=== PATIENT | male | born 1970 | race Caucasian/White ===

== ENCOUNTER 2018-05-26 13:03 | Emergency (ER) | payer OTHER ==
[2018-05-26 13:11] VITALS: BP 167/96
[2018-05-26] MEDS ORDERED: CEPHALEXIN 500 MG CAPSULE PO ONE (13:28)
--- NOTE | 2018-05-26 13:35 | ER Document Report ---
HPI - HPI Pain Level: 3 Notes: Patient is a 47-year-old male who presents with chief complaint of possible insect bite to his right ankle. Patient states he believes it was a black . He states that he did not see the spider or insect. He states that the bite occurred yesterday and a few hours later he had a brief episode of heart racing and abdominal pain. He states that the symptoms resolved within a few minutes. Patient wanted to be checked out in case it was a black . Past Medical History - General Information source: Patient - Social History Smoking Status: Never Smoker Frequency of alcohol use: None Drug Abuse: None Family History: Reviewed & Not Pertinent - Medical History Medical History: Negative Surgical Hx: Negative - Immunizations Immunizations up to date: Yes Vertical Provider Document - CONSTITUTIONAL Notes: PHYSICAL EXAMINATION: GENERAL: Well-appearing, well-nourished and in no acute distress. HEAD: Atraumatic, normocephalic. EYES: Pupils equal round extraocular movements intact, conjunctiva are normal. ENT: Nares patent NECK: Normal range of motion LUNGS: No respiratory distress Musculoskeletal: Normal range of motion NEUROLOGICAL: Normal speech, normal gait. PSYCH: Normal mood, normal affect. SKIN: Warm, Dry, normal turgor, area of erythema noted to right foot on the dorsal surface, small area of induration. Area of erythema is blanchable. The total area is approximately 1 cm x 1 cm. Course - Re-evaluation Re-evalutation: Patient's examination is consistent with insect bite. There does appear to be a localized reaction. Patient will be placed on Keflex and instructed to take Benadryl. Patient is agreeable to this plan. - Vital Signs Vital signs: Temp Pulse Resp BP Pulse Ox 98.3 F 72 18 167/96 H 99 05/26/18 13:10 05/26/18 13:10 05/26/18 13:10 05/26/18 13:10 05/26/18 13:10 Discharge - Discharge Clinical Impression: Insect bite, Cellulitis Condition: Stable Disposition: HOME, SELF-CARE Additional Instructions: Insect Bites You have been bitten by an insect. These bites can cause two types of swelling: an initial swelling due to insect saliva or injected poison, and a late reaction due to your body's allergic reaction. This initial local reaction may be uncomfortable but is not dangerous. Often there's an itchy "hive" at the bite location. This is treated with antihistamines, cold compresses, and resting the affected body part. The later reaction often develops about the second day. The entire area becomes very swollen, red, itchy, and tender. This is an allergic reaction. Your body is attacking the leftover insect saliva or venom. This type of allergy is unpleasant, but not dangerous. We treat this swelling with cortisone -type medicine. Sometimes we use antibiotics if we're worried about infection. Antihistamines help with the itch. If you develop a fever, chills, a red streak, or swollen glands in the area of the bite, infection may be starting. Return at once. Cellulitis You have an infection of your skin and underlying soft tissues called cellulitis. This is due to bacteria, which can enter through any break in the skin, or even through an irritated hair follicle. Untreated, cellulitis will usually worsen. Antibiotics are required. Usually, warm packs or warm soaks, and elevation of the infected area are recommended. You should start getting better within 24 to 36 hours. Most infections respond quickly to the right medication. Follow-up care is important, however, to check for abscess (boil) formation, unsuspected foreign body, or resistant infection. If you develop fever, chills, or if the area of infection is becoming rapidly more swollen or painful, call the doctor at once. POSSIBLE Black Spider Bite You have been diagnosed as POSSIBLY having a black bite. This bite can be very serious to very young or very old individuals. Healthy persons usually tolerate the unpleasant effects of the venom well, often requiring only treatment of pain and muscle spasms. Black venom typically causes stinging around the site of the bite, then spreading muscle spasms. The pain may become severe if stomach, back, and chest muscles become involved. The usual treatment is oral pain medication and muscle relaxing drugs. More severe cases may require intravenous medication, Antivenin, or hospitalization. Return for further treatment if you develop shortness of breath, severe lightheadedness, or severe pain which does not respond to oral medication. There is no way to know for sure what type of insect bit you. Considering that you saw black windows on the lawnmower that you are riding it is a possibility. At this point in time the bite does not appear to be anything dangerous, it appears to be a case of very mild cellulitis. I would like you to keep an eye on the area and also read the above return precautions. Take Benadryl 50 mg every 6 hours as needed for itching, take the cephalexin as prescribed for infection/cellulitis. Follow-up with your primary care provider in the next 2-3 days for a follow-up. Return sooner if you develop any worsening symptoms as outlined above to include shortness of breath, severe lightheadedness or severe pain that does not respond to either Motrin or Tylenol. Prescriptions: Cephalexin [Cephalexin 500 MG Capsule] 1 cap PO QID #28 cap
== END 2018-05-26 13:40 | disposition home or self-care (01) ==
LOC: ER 13:03
DX: T14.8XXA Other injury of unspecified body region, initial encounter (principal); W57.XXXA Bitten or stung by nonvenomous insect and other nonvenomous arthropods, initial encounter; L03.90 Cellulitis, unspecified
CPT/HCPCS: 99281